=== PATIENT | female | born 1995 | race Two or more races ===

== ENCOUNTER 2019-08-02 05:47 | Emergency (ER) | payer MEDICAID, OTHER ==
[~2019-08-02] VITALS: Ht 170.2 cm; Wt 99.8 kg
[2019-08-02] MEDS ORDERED: Albuterol ud Inhalation HHN ONE (06:15)
[2019-08-02] MEDS ORDERED: Ipratropium 0.02% Inh Soln 2.5ml UD HHN ONE (06:15)
[2019-08-02 06:17] VITALS: BP 124/78
--- NOTE | 2019-08-02 06:18 | NUR ---
ED Nurse Note: Patient walked in to ER c/o SOB. Stated that she needs steroids, and breathing treatent. AAO x4, VSS at this time, skin is dry warm to touch.
[2019-08-02] MEDS ORDERED: PREDNISONE20 MG ORAL (06:34)
[2019-08-02] MEDS ORDERED: BREO ELLIPTA 21 EACH IH (06:34)
[2019-08-02] MEDS ORDERED: ALBUTEROL SULF8.5 GM INH (06:34)
--- NOTE | 2019-08-02 06:34 | Emergency Room Report ---
History of Present Illness General Chief Complaint: Asthma Source: Patient Present Illness HPI Is a 23-year-old female with a history of asthma. She get frequent exacerbation. She is out of her inhaler. She presents with chief complaint of wheezing. No nausea no vomiting. Worse with inspiration. Worse with exertion. Similar symptom in the past. No intubation. Last steroid use was over a month ago. No fever chills. Allergies: Coded Allergies: No Known Allergies (Unverified , 08/02/19) Patient History Past Medical History: see triage record, old chart reviewed, asthma Past Surgical History: none Pertinent Family History: none Social History: Denies: smoking Now: No Immunizations: other Reviewed Nursing Documentation: PMH: Agreed; PSxH: Agreed Nursing Documentation-PMH Past Medical History: No Stated History Review of Systems Eye: Denies: eye pain, blurred vision ENT: Denies: ear pain, nose congestion, throat swelling Respiratory: Reports: shortness of breath, wheezing; Denies: cough Cardiovascular: Denies: chest pain, palpitations Gastrointestinal: Denies: abdominal pain, diarrhea, nausea, vomiting Musculoskeletal: Denies: back pain, joint pain Skin: Denies: rash Neurological: Denies: headache, numbness Endocrine: Denies: increased thirst, increased urine Hematologic/Lymphatic: Denies: easy bruising All Other Systems: negative except mentioned in HPI Physical Exam Vital Signs Date Time Temp Pulse Resp B/P (MAP) Pulse Ox O2 Delivery O2 Flow Rate FiO2 08/02/19 06:02 98.1 80 16 124/78 (93) 95 Room Air 08/02/19 06:21 21 Vitals normal Sp02 EP Interpretation: reviewed, normal General Appearance: well appearing, no apparent distress, alert Head: normocephalic, atraumatic Eyes: bilateral eye PERRL, bilateral eye EOMI ENT: hearing grossly normal, normal pharynx Neck: full range of motion, supple, no meningismus Respiratory: chest non-tender, accessory muscle use, wheezing Cardiovascular #1: regular rate, rhythm, no murmur Gastrointestinal: normal bowel sounds, non tender, no mass, no organomegaly, no bruit, non-distended Musculoskeletal: back normal, gait/station normal, normal range of motion Psychiatric: mood/affect normal Medical Decision Making Diagnostic Impression: Primary Impression: Asthma exacerbation Qualified Codes: J45.21 - Mild intermittent asthma with (acute) exacerbation ER Course Presents with asthma exacerbation wheezing cleared after breathing treatment. Steroid started. No evidence of ACS, PE, pneumonia or respiratory distress. Will discharge home. Last Vital Signs Date Time Temp Pulse Resp B/P (MAP) Pulse Ox O2 Delivery O2 Flow Rate FiO2 08/02/19 06:21 76 18 99 Room Air 21 86 18 96 08/02/19 06:17 98.1 124/78 Status: improved Disposition: HOME, SELF-CARE Condition: Stable Scripts Fluticasone/Vilanterol (Breo Ellipta 200-25 Mcg INH) 1 Each Blst.w.dev 1 EACH IH BID, #1 UNIT Prov: Foster Negron MD 08/02/19 Prednisone* (PREDNISONE*) 20 Mg Tablet 40 MG ORAL DAILY, #8 TAB Prov: Foster Negron MD 08/02/19 Albuterol Sulfate* (ALBUTEROL SULFATE MDI*) 8.5 Gm Hfa.aer.ad 2 PUFF INH Q4H PRN for cough/wheezing, #1 EA 0 Refills Prov: Foster Negron MD 08/02/19 Patient Instructions: Asthma, Adult Additional Instructions: Follow up with your doctor in the week. Return if symptoms worsen. Foster Negron MD Aug 02, 2019 06:34
[2019-08-02 06:47] VITALS: BP 124/78
--- NOTE | 2019-08-02 06:49 | NUR ---
ED Nurse Note: Pt cleared by health care Provider for discharge. DC instructions/prescription was given and explained to pt and verbalized understanding of teachings. All medical deviecs such as ID band removed. Pt is AAO x4, ambulatory and left with all personal belongings.
== END 2019-08-02 06:49 | disposition home or self-care (01) ==
LOC: EMR 06:15
DX: J45.21 Mild intermittent asthma with (acute) exacerbation (principal)
CPT/HCPCS: 94640; 94664; 99284; J7512

== ENCOUNTER 2019-10-28 20:19 | Emergency (ER) | payer OTHER ==
[~2019-10-28] VITALS: Ht 170.2 cm; Wt 113.4 kg
[~2019-10-28 20:19] MED LIST: ALBUTEROL SULF8.5 GM INH; BREO ELLIPTA 21 EACH IH; PREDNISONE20 MG ORAL
[2019-10-28 20:38] VITALS: BP 117/77
--- NOTE | 2019-10-28 20:38 | NUR ---
ED Nurse Note: Patient walked in to ED from home c/o upper abdominal pain, nausea, vomiting and diarrhea since last night. Reports watery stool. No episodes of vomiting at this time. Afebrile. No SOB. VSS.
--- NOTE | 2019-10-28 20:42 | NUR ---
ED Nurse Note: ERMD at bedside.
--- NOTE | 2019-10-28 20:55 | Emergency Room Report ---
History of Present Illness General Chief Complaint: Nausea Source: Patient Present Illness HPI Patient presents with 1 day of nausea vomiting and diarrhea. She is following up little bit of blood today and has some epigastric pain that is 5/10 and sharp. She also cannot count the number of time she is had to go use the bathroom with diarrhea that is watery without any blood. She denies any dysuria. She does think she has a yeast infection. Her last period was on the seventh and normal for her and she does not believe that she is at this time. She denies any fevers or chills. She feels weak when she stands up. There are no palpitations or rashes. No recent travel and she is not sure if she ate something unusual. Her daughter had vomiting 3 days ago but no diarrhea and is better at this time. She rates the abdominal pain 8/10 at this time to the nurses. No sore throat, chest pain, palpitations, dysuria, shortness of breath, joint pain, rashes, depression, anxiety, visual changes, headache. Allergies: Coded Allergies: No Known Allergies (Unverified , 08/02/19) Patient History Past Medical History: see triage record Social History: Denies: smoking, alcohol use, drug use Social History Narrative Not working at this time Last Menstrual Period: 10/10/19 Now: No : 2 Para: 1 Reviewed Nursing Documentation: PMH: Agreed; PSxH: Agreed Nursing Documentation-PMH Past Medical History: No History, Except For Hx Cardiac Problems: No Hx Hypertension: No Hx Pacemaker: No Hx Asthma: Yes Hx COPD: No Hx Diabetes: No Hx Cancer: No Hx Gastrointestinal Problems: No Hx Dialysis: No History Of Psychiatric Problem: No Hx Neurological Problems: No Hx Cerebrovascular Accident: No Hx Seizures: No Review of Systems All Other Systems: negative except mentioned in HPI Physical Exam Vital Signs Date Time Temp Pulse Resp B/P (MAP) Pulse Ox O2 Delivery O2 Flow Rate FiO2 10/28/19 20:33 99.3 102 19 117/77 (90) 97 Room Air Sp02 EP Interpretation: reviewed, normal General Appearance: well appearing, no apparent distress, GCS 15 Head: normocephalic Eyes: bilateral eye normal inspection, bilateral eye PERRL, bilateral eye EOMI ENT: moist mucus membranes Neck: supple Respiratory: lungs clear, normal breath sounds Cardiovascular #1: regular rate, rhythm Cardiovascular #2: 2+ radial (R) Gastrointestinal: normal inspection, normal bowel sounds, non tender, no mass, non-distended, no guarding, no rebound, overweight Genitourinary: no CVA tenderness Musculoskeletal: back normal, normal range of motion, gait/station normal Neurologic: alert, oriented x3, grossly normal Psychiatric: mood/affect normal Skin: no rash, warm/dry Medical Decision Making Diagnostic Impression: Primary Impression: Gastroenteritis Additional Impression: Monilia infection ER Course Patient presents with nausea vomiting diarrhea. Differential includes food poisoning, gastroenteritis amongst others. By her symptoms IV is indicated. Also labs will be performed. She will be treated with Reglan, Benadryl and Pepcid. Labs with normal white count and H&H. CMP unremarkable. Urinalysis clear. Patient tolerating oral intake. Pain is decreased. Clinically the patient has viral gastroenteritis. Discussed treatment with patient. Patient stable for outpatient observation and treatment. Laboratory Tests Test 10/28/19 21:08 White Blood Count 8.3 K/UL (4.8-10.8) Red Blood Count 5.36 M/UL (4.20-5.40) Hemoglobin 14.4 G/DL (12.0-16.0) Hematocrit 43.5 % (37.0-47.0) Mean Corpuscular Volume 81 FL (80-99) Mean Corpuscular Hemoglobin 26.8 PG (27.0-31.0) L Mean Corpuscular Hemoglobin Concent 33.1 G/DL (32.0-36.0) Red Cell Distribution Width 12.7 % (11.6-14.8) Platelet Count 271 K/UL (150-450) Mean Platelet Volume 6.7 FL (6.5-10.1) Neutrophils (%) (Auto) 66.7 % (45.0-75.0) Lymphocytes (%) (Auto) 23.8 % (20.0-45.0) Monocytes (%) (Auto) 6.9 % (1.0-10.0) Eosinophils (%) (Auto) 2.0 % (0.0-3.0) Basophils (%) (Auto) 0.7 % (0.0-2.0) Urine Color Yellow Urine Appearance Clear Urine pH 5 (4.5-8.0) Urine Specific [place] 1.020 (1.005-1.035) Urine Protein 2+ (NEGATIVE) H Urine Glucose (UA) Negative (NEGATIVE) Urine Ketones 1+ (NEGATIVE) H Urine Blood 2+ (NEGATIVE) H Urine Nitrite Negative (NEGATIVE) Urine Bilirubin Negative (NEGATIVE) Urine Urobilinogen 4 MG/DL (0.0-1.0) H Urine Leukocyte Esterase 3+ (NEGATIVE) H Urine RBC 0-2 /HPF (0 - 2) Urine WBC 2-4 /HPF (0 - 2) Urine Squamous Epithelial Cells Few /LPF (NONE/OCC) Urine Bacteria Few /HPF (NONE) Urine HCG, Qualitative Negative (NEGATIVE) Sodium Level 137 MMOL/L (136-145) Potassium Level 3.7 MMOL/L (3.5-5.1) Chloride Level 104 MMOL/L (98-107) Carbon Dioxide Level 24 MMOL/L (21-32) Anion Gap 9 mmol/L (5-15) Blood Urea Nitrogen 11 mg/dL (7-18) Creatinine 0.9 MG/DL (0.55-1.30) Estimate Glomerular Filtration Rate > 60 mL/min (>60) Glucose Level 93 MG/DL (74-106) Calcium Level 8.8 MG/DL (8.5-10.1) Total Bilirubin 0.4 MG/DL (0.2-1.0) Aspartate Amino Transferase (AST) 13 U/L (15-37) L Alanine Aminotransferase (ALT) 19 U/L (12-78) Alkaline Phosphatase 85 U/L (46-116) Total Protein 7.9 G/DL (6.4-8.2) Albumin 3.5 G/DL (3.4-5.0) Globulin 4.4 g/dL Albumin/Globulin Ratio 0.8 (1.0-2.7) L Lipase 164 U/L (73-393) Last Vital Signs Date Time Temp Pulse Resp B/P (MAP) Pulse Ox O2 Delivery O2 Flow Rate FiO2 10/29/19 00:32 98.4 81 18 125/70 97 Room Air 10/28/19 22:40 21 Status: improved Disposition: HOME, SELF-CARE Condition: Improved Scripts Famotidine* (Pepcid 20mg tablet*) 20 Mg Tablet 20 MG ORAL DAILY, #10 TAB 0 Refills Prov: Chris Valdivia MD 10/29/19 Fluconazole (FLUCONAZOLE) 100 Mg Tablet 100 MG ORAL DAILY, #1 TAB 0 Refills Prov: Chris Valdivia MD 10/29/19 Clotrimazole (GYNE-LOTRIMIN*) 45 Gm Cream.appl 1 APPLIC VG QHS, #45 GM 0 Refills Prov: Chris Valdivia MD 10/29/19 Ondansetron Odt* (ZOFRAN ODT*) 4 Mg Tab.rapdis 4 MG BC EVERY 8 HOURS, #4 TAB 1 Refill Prov: Chris Valdivia MD 10/29/19 Chris Valdivia MD Oct 28, 2019 20:55
[2019-10-28] MEDS ORDERED: Metoclopramide 10mg/2ml Inj IVP ONE (21:00)
[2019-10-28] MEDS ORDERED: DiphenhydrAMINE 50mg/ml Inj IVP ONE (21:00)
[2019-10-28 21:20] LABS: APPEARANCE,URINE CLEAR; BILIRUBIN, URINE NEGATIVE (NEGATIVE); GLUCOSE, URINE (UA) NEGATIVE (NEGATIVE); KETONES,URINE 1+ (NEGATIVE); LEUKOCYTE ESTERASE ,URINE 3+ (NEGATIVE); NITRITE,URINE NEGATIVE (NEGATIVE); PH,URINE 5 (4.5-8.0); PROTEIN,URINE 2+ (NEGATIVE); UROBILINOGEN,URINE 4 MG/DL (0.0-1.0)
[2019-10-28 21:25] LABS: COLOR,URINE YELLOW
[2019-10-28 21:26] LABS: BASOPHILS % (AUTO) 0.7 % (0.0-2.0); HEMATOCRIT 43.5 % (37.0-47.0); HEMOGLOBIN 14.4 G/DL (12.0-16.0); LYMPHOCYTES % (AUTO) 23.8 % (20.0-45.0); MEAN CORPUSCULAR VOLUME 81 FL (80-99); MONOCYTES % (AUTO) 6.9 % (1.0-10.0); NEUTROPHILS % (AUTO) 66.7 % (45.0-75.0); PLATELET COUNT 271 K/UL (150-450); RED BLOOD COUNT 5.36 M/UL (4.20-5.40); RED CELL DISTRIBUTION WIDTH 12.7 % (11.6-14.8); WHITE BLOOD COUNT 8.3 K/UL (4.8-10.8)
[2019-10-28] MEDS ORDERED: Albuterol/Ipratropium 3ml neb HHN ONE (21:30)
--- NOTE | 2019-10-28 21:40 | NUR ---
ED Nurse Note: RT at bedside for breathing tx.
[2019-10-28 21:41] LABS: ANION GAP 9 mmol/L (5-15); BLOOD UREA NITROGEN 11 mg/dL (7-18); CALCIUM 8.8 MG/DL (8.5-10.1); CARBON DIOXIDE 24 MMOL/L (21-32); CHLORIDE 104 MMOL/L (98-107); CREATININE 0.9 MG/DL (0.55-1.30); POTASSIUM 3.7 MMOL/L (3.5-5.1); SODIUM 137 MMOL/L (136-145)
[2019-10-28 21:55] LABS: ALANINE AMINOTRANSFERASE 19 U/L (12-78); ALBUMIN 3.5 G/DL (3.4-5.0); ALBUMIN/GLOBULIN RATIO 0.8 (1.0-2.7); ALKALINE PHOSPHATASE 85 U/L (46-116); ASPARTATE AMINO TRANSFERASE 13 U/L (15-37); BILIRUBIN,TOTAL 0.4 MG/DL (0.2-1.0)
[2019-10-28 22:40] VITALS: BP 120/69
[2019-10-29] MEDS ORDERED: ONDANSETRON ODT4 MG BC (00:15)
[2019-10-29] MEDS ORDERED: GYNE-LOTRIMIN45 GM VG (00:15)
[2019-10-29] MEDS ORDERED: FAMOTIDINE20 MG ORAL (00:15)
[2019-10-29] MEDS ORDERED: FLUCONAZOLE100 MG ORAL (00:15)
[2019-10-29 00:32] VITALS: BP 125/70
--- NOTE | 2019-10-29 00:32 | NUR ---
ER DISCHARGE NOTE: Patient is cleared to be discharged per ERMD, pt is aox4, on room air, with stable vital signs. pt was given dc and prescription instructions, pt was able to verbalize understanding, pt id band and iv site removed without complications. pt is able to ambulate with steady gait. pt took all belongings.
== END 2019-10-29 00:32 | disposition home or self-care (01) ==
LOC: EMR 21:15
DX: K52.9 Noninfective gastroenteritis and colitis, unspecified (principal); B37.9 Candidiasis, unspecified; J45.909 Unspecified asthma, uncomplicated
CPT/HCPCS: 36415; 80053; 81003; 81025; 83690; 85025; 96361; 96374; 96375; J1200; J2765; S0028; Z7502; 99284; J7620

== ENCOUNTER → 2020-08-19 | Emergency (ER) | payer MEDICAID, OTHER ==
[~2020-08-19] VITALS: Ht 170.2 cm; Wt 117.9 kg
[~2020-08-19] MED LIST changes: +CEPHALEXIN500 MG ORAL; +FAMOTIDINE20 MG ORAL; +FLUCONAZOLE100 MG ORAL; +GYNE-LOTRIMIN45 GM VG; +METRONIDAZOLE500 MG ORAL; +Metoclopramide 10mg/2ml Inj IVP ONE; +ONDANSETRON ODT4 MG BC; +PRENATAL + DHA1 EAC2 PO; +REGLAN5 MG ORAL
[2020-08-19 19:30] VITALS: BP 130/79
[2020-08-19 19:33] LABS: APPEARANCE,URINE CLOUDY; BILIRUBIN, URINE NEGATIVE (NEGATIVE); COLOR,URINE PALE YELLOW; GLUCOSE, URINE (UA) NEGATIVE (NEGATIVE); KETONES,URINE NEGATIVE (NEGATIVE); LEUKOCYTE ESTERASE ,URINE 3+ (NEGATIVE); NITRITE,URINE NEGATIVE (NEGATIVE); PH,URINE 7 (4.5-8.0); PROTEIN,URINE NEGATIVE (NEGATIVE); UROBILINOGEN,URINE NORMAL MG/DL (0.0-1.0)
--- NOTE | 2020-08-19 20:02 | Emergency Room Report ---
History of Present Illness General Chief Complaint: Abdominal Pain Source: Patient Present Illness HPI 24-year-old female presents to the emergency department complaining of 8 out of 10 severity generalized abdominal pain with associated nausea and vomiting x1 week. Patient denies diarrhea she reports some mild constipation. Patient denies fevers or chills. She denies blood in the vomitus or in her stool. She denies black tarry stools. Patient denies dysuria, urinary frequency, hematuria or urinary urgency. Patient reports she is not sure whether or not she is . She reports last period was 06 of July. Pt. denies vaginal bleeding or DC. Patient reports past medical history of asthma. She states that she is felt very dehydrated over the course of the week as she has been having difficulty keeping down fluids. She denies headache, dizziness, chest pain, shortness of breath, weakness or syncope. Patient reports increased fatigue. 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 Patient History Past Medical History: see triage record Past Surgical History: none Pertinent Family History: none Last Menstrual Period: 07/06/20 Reviewed Nursing Documentation: PMH: Agreed; PSxH: Agreed Nursing Documentation-PMH Past Medical History: No History, Except For Hx Cardiac Problems: No Hx Hypertension: No Hx Pacemaker: No Hx Asthma: Yes Hx COPD: No Hx Diabetes: No Hx Cancer: No Hx Gastrointestinal Problems: No Hx Dialysis: No Hx Neurological Problems: No Hx Cerebrovascular Accident: No Hx Seizures: No Review of Systems All Other Systems: negative except mentioned in HPI Physical Exam Vital Signs Date Time Temp Pulse Resp B/P (MAP) Pulse Ox O2 Delivery O2 Flow Rate FiO2 08/19/20 19:11 97.9 83 18 130/79 (96) 98 Room Air Sp02 EP Interpretation: reviewed, normal General Appearance: no apparent distress, alert, GCS 15, non-toxic Head: normocephalic, atraumatic Eyes: bilateral eye normal inspection, bilateral eye PERRL ENT: hearing grossly normal, normal voice Neck: full range of motion Respiratory: chest non-tender, lungs clear, normal breath sounds, speaking full sentences Cardiovascular #1: regular rate, rhythm, no edema Gastrointestinal: normal bowel sounds, non tender, soft, non-distended, no guarding Rectal: deferred Genitourinary: normal inspection, no CVA tenderness Musculoskeletal: back normal, normal range of motion, gait/station normal, non- tender Neurologic: alert, motor strength/tone normal, oriented x3, sensory intact, responsive, speech normal Psychiatric: judgement/insight normal Lymphatic: no adenopathy Medical Decision Making PA Attestation Dr. Valdivia Is my supervising Physician whom patient management has been discussed with. Diagnostic Impression: Primary Impression: Qualified Codes: Z3A.01 - Less than 8 weeks gestation of Additional Impressions: UTI in Qualified Codes: O23.41 - Unspecified infection of urinary tract in , first trimester Trichomonas infection Vomiting during ER Course 24-year-old female presents to the emergency department complaining of 8 out of 10 severity generalized abdominal pain with associated nausea and vomiting x1 week. Patient denies diarrhea she reports some mild constipation. Patient denies fevers or chills. She denies blood in the vomitus or in her stool. She denies black tarry stools. Patient denies dysuria, urinary frequency, hematuria or urinary urgency. Patient reports she is not sure whether or not she is . She reports last period was 06 of July. Pt. denies vaginal bleeding or DC. Patient reports past medical history of asthma. She states that she is felt very dehydrated over the course of the week as she has been having difficulty keeping down fluids. She denies headache, dizziness, chest pain, shortness of breath, weakness or syncope. Patient reports increased fatigue. Ddx considered but are not limited to: , GE, gastritis, ectopic ,Spontaneous , Ovarian torsion, Ovarian cyst. PID, acute appendicitis, gall stones. Vital signs: are WNL, pt. is afebrile H&PE are most consistent with: no acute abdomen on exam. Pt. non--toxic in appearance ORDERS: -Urine hcg- Positive PT. -serum Hcg Quant: [id number] -UA: Moderate bacteria few trichomonas. -CBC: WNL -BMP: WNL -Lipase:WNL - Blood/RH type and screen- see attached labs -Pelvic US complete- normal intrauterine estimated at 6 weeks 5 days gestation. FHR 154 ED INTERVENTIONS: None at this time. - 5mg Reglan IV -1 Liter NS. After above interventions this patient successfully completed oral fluid challenge without nausea or vomiting. DISCHARGE: At this time pt. is stable for d/c to home. Will provide printed patient care instructions, and any necessary prescriptions. Care plan and follow up instructions have been discussed with the patient prior to discharge. Labs Test 08/19/20 16:56 08/19/20 19:18 White Blood Count 13.1 K/UL (4.8-10.8) Red Blood Count 4.90 M/UL (4.20-5.40) Hemoglobin 13.6 G/DL (12.0-16.0) Hematocrit 41.3 % (37.0-47.0) Mean Corpuscular Volume 84 FL (80-99) Mean Corpuscular Hemoglobin 27.7 PG (27.0-31.0) Mean Corpuscular Hemoglobin Concent 32.8 G/DL (32.0-36.0) Red Cell Distribution Width 14.2 % (11.6-14.8) Platelet Count 262 K/UL (150-450) Mean Platelet Volume 7.6 FL (6.5-10.1) Neutrophils (%) (Auto) 70.8 % (45.0-75.0) Lymphocytes (%) (Auto) 21.8 % (20.0-45.0) Monocytes (%) (Auto) 4.7 % (1.0-10.0) Eosinophils (%) (Auto) 1.9 % (0.0-3.0) Basophils (%) (Auto) 0.8 % (0.0-2.0) Sodium Level 136 MMOL/L (136-145) Potassium Level 4.0 MMOL/L (3.5-5.1) Chloride Level 102 MMOL/L (98-107) Carbon Dioxide Level 26 MMOL/L (21-32) Anion Gap 9 mmol/L (5-15) Blood Urea Nitrogen 9 mg/dL (7-18) Creatinine 1.1 MG/DL (0.55-1.30) Estimat Glomerular Filtration Rate > 60 mL/min (>60) Glucose Level 96 MG/DL (74-106) Calcium Level 8.9 MG/DL (8.5-10.1) Total Bilirubin 0.2 MG/DL (0.2-1.0) Aspartate Amino Transf (AST/SGOT) 8 U/L (15-37) Alanine Aminotransferase (ALT/SGPT) < 6 U/L (12-78) Alkaline Phosphatase 83 U/L (46-116) Total Protein 6.7 G/DL (6.4-8.2) Albumin 3.2 G/DL (3.4-5.0) Globulin 3.5 g/dL Albumin/Globulin Ratio 0.9 (1.0-2.7) Lipase 156 U/L (73-393) Urine Color Pale yellow Urine Appearance Cloudy Urine pH 7 (4.5-8.0) Urine Specific [place] 1.010 (1.005-1.035) Urine Protein Negative (NEGATIVE) Urine Glucose (UA) Negative (NEGATIVE) Urine Ketones Negative (NEGATIVE) Urine Blood Negative (NEGATIVE) Urine Nitrite Negative (NEGATIVE) Urine Bilirubin Negative (NEGATIVE) Urine Urobilinogen Normal MG/DL (0.0-1.0) Urine Leukocyte Esterase 3+ (NEGATIVE) Urine RBC 2-4 /HPF (0 - 2) Urine WBC 10-15 /HPF (0 - 2) Urine Squamous Epithelial Cells Many /LPF (NONE/OCC) Urine Bacteria Moderate /HPF (NONE) Urine Trichomonas Occasional /HPF (NONE) Urine HCG, Qualitative Positive (NEGATIVE) CT/MRI/US Diagnostic Results CT/MRI/US Diagnostic Results : Imaging Test Ordered: Pelvic OB Ultrasound Impression "IUP at 6 weeks, 5 days with a heart rate of 154. No free fluid normal ovaries with normal flow. Cervix is hypervascular ." --Per official radiology report- Please see report for specific details. Last Vital Signs Date Time Temp Pulse Resp B/P (MAP) Pulse Ox O2 Delivery O2 Flow Rate FiO2 08/19/20 19:30 97.9 87 18 130/79 98 Room Air Status: improved Disposition: HOME, SELF-CARE Condition: Stable Scripts Metoclopramide Hcl* (REGLAN*) 5 Mg Tablet 5 MG ORAL EVERY 6 HOURS for vomiting, #20 TAB Prov: Teresa Acevedo 08/19/20 Cmb#95/Iron/Fa/Dha ( + DHA COMBO PACK) 1 Each Combo..pkg 1 EACH PO DAILY, #1 PACK 3 Refills Prov: Teresa Acevedo 08/19/20 Metronidazole* (FLAGYL*) 500 Mg Tablet 500 MG ORAL BID for 7 Days, #14 TAB Prov: Teresa Acevedo 08/19/20 Cephalexin* (KEFLEX*) 500 Mg Capsule 500 MG ORAL EVERY 12 HOURS for 7 Days, #14 CAP 0 Refills Prov: Teresa Acevedo 08/19/20 Referrals: [facility] Patient Instructions: Eating Plan for Hyperemesis Gravidarum, First Trimester of , Hyperemesis Gravidarum, and Sexually Transmitted Diseases, Trichomonas Test, Urinary Tract Infection, [id number] Additional Instructions: Take medications as directed. ULTRASOUND Showed IUP estimated to be 6weeks 5 days, with a heart rate of 154 Follow up with a OBGYN within 3 days, even if your symptoms have resolved. Return sooner to ED if new symptoms occur, or current symptoms become worse. - Please note that this Emergency Department Report was dictated using [employer] control representative technology software, occasionally this can lead to erroneous entry secondary to interpretation by the dictation equipment. Teresa Acevedo Aug 19, 2020 20:02
[2020-08-19 20:05] LABS: BASOPHILS % (AUTO) 0.8 % (0.0-2.0); EOSINOPHILS % (AUTO) 1.9 % (0.0-3.0); HEMATOCRIT 41.3 % (37.0-47.0); HEMOGLOBIN 13.6 G/DL (12.0-16.0); LYMPHOCYTES % (AUTO) 21.8 % (20.0-45.0); MEAN CORPUSCULAR VOLUME 84 FL (80-99); MONOCYTES % (AUTO) 4.7 % (1.0-10.0); NEUTROPHILS % (AUTO) 70.8 % (45.0-75.0); PLATELET COUNT 262 K/UL (150-450); RED CELL DISTRIBUTION WIDTH 14.2 % (11.6-14.8); WHITE BLOOD COUNT 13.1 K/UL (4.8-10.8)
[2020-08-19 20:27] LABS: ANION GAP 9 mmol/L (5-15); BLOOD UREA NITROGEN 9 mg/dL (7-18); CALCIUM 8.9 MG/DL (8.5-10.1); CARBON DIOXIDE 26 MMOL/L (21-32); CHLORIDE 102 MMOL/L (98-107); CREATININE 1.1 MG/DL (0.55-1.30); SODIUM 136 MMOL/L (136-145)
[2020-08-19 20:32] LABS: ALANINE AMINOTRANSFERASE < 6 U/L (12-78); ALBUMIN 3.2 G/DL (3.4-5.0); ALBUMIN/GLOBULIN RATIO 0.9 (1.0-2.7); ALKALINE PHOSPHATASE 83 U/L (46-116); ASPARTATE AMINO TRANSFERASE 8 U/L (15-37); BILIRUBIN,TOTAL 0.2 MG/DL (0.2-1.0)
--- NOTE | 2020-08-19 20:48 | Diagnostic Imaging Report ---
EXAM: US First Trimester , Transabdominal and Transvaginal CLINICAL HISTORY: ABD PAIN TECHNIQUE: Real-time transabdominal and transvaginal obstetrical ultrasound of the maternal pelvis and a first trimester with image documentation. Transvaginal imaging was used for better evaluation of the fetus and adnexa. COMPARISON: No relevant prior studies available. FINDINGS: Gestation: Single viable intrauterine gestation. heart rate 153 bpm Mean sac diameter. 2.06 cm, 6 weeks 4 days. Yolk sac 0.4 cm CRL 0. 82 cm, 6 weeks 5 days. Placenta/amniotic fluid: Cannot be adequately evaluated due to the early gestational age. Uterus/cervix: Unremarkable. No myometrial mass. Ovaries: Left ovary 3.3 cm Right ovary 3 cm No mass. Free fluid: No free fluid. Other findings: No acute abnormality. IMPRESSION: 1. Single viable intrauterine gestation. 2. Consistent with 6 week IJ . 3. No acute abnormality. 4. Otherwise unremarkable study.
== END | disposition home or self-care (01) ==
LOC: EMR 19:30
DX: O21.9 Vomiting of pregnancy, unspecified (principal); O23.41 Unspecified infection of urinary tract in pregnancy, first trimester; A59.9 Trichomoniasis, unspecified; O98.811 Other maternal infectious and parasitic diseases complicating pregnancy, first trimester; Z3A.01 Less than 8 weeks gestation of pregnancy
CPT/HCPCS: 36415; 76801; 76817; 80053; 81003; 81025; 83690; 84702; 85025; 87086; 96361; 96374; J2765; J7030; Z7502; 99284

== ENCOUNTER 2020-11-07 22:39 | Emergency (ER) | payer MEDICAID ==
[~2020-11-07] VITALS: Ht 170.2 cm; Wt 113.4 kg
[~2020-11-07 22:39] MED LIST changes: -Metoclopramide 10mg/2ml Inj IVP ONE
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
--- NOTE | 2020-11-07 22:59 | NUR ---
ED Nurse Note: ERMD at bedside URine sent
[2020-11-07 23:00] VITALS: BP 128/78
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
[2020-11-07] MEDS ORDERED: IBUPROFEN600 M1 ORAL (23:51)
--- NOTE | 2020-11-08 | NUR ---
ER DISCHARGE NOTE: Patient is cleared to be discharged per ERMD, pt is aox4, on room air, with stable vital signs. pt was given dc and prescription instructions, pt was able to verbalize understanding, pt id band removed.pt is able to ambulate with steady gait. pt took all belongings.
[2020-11-08 00:02] VITALS: BP 128/78
== END 2020-11-08 00:02 | disposition home or self-care (01) ==
LOC: EMR 23:02
DX: S09.90XA Unspecified injury of head, initial encounter (principal); S00.03XA Contusion of scalp, initial encounter; J45.909 Unspecified asthma, uncomplicated; Z88.1 Allergy status to other antibiotic agents; V43.52XA Car driver injured in collision with other type car in traffic accident, initial encounter; Y92.411 Interstate highway as the place of occurrence of the external cause
CPT/HCPCS: 70450; 81025; Z7502; 99284